=== PATIENT | male | born 1945 | race Caucasian/White ===

== ENCOUNTER 2017-07-04 14:22 | Emergency (ER) | payer MEDICARE, BC ==
[~2017-07-04] VITALS: Ht 182.9 cm; Wt 100.7 kg
--- NOTE | 2017-07-04 14:37 | NUR ---
PT IS IN ROOM #2A. DR ARIZA EVALUATED THE PT.
--- NOTE | 2017-07-04 14:44 | NUR ---
Left nostril bleeding has stopped. Nasal packing is dry & intact, no blood stains seen in the nasal packing. Patient discharged to home in stable conditon. Written and verbal after care instructions given to patient. Patient verbalizes understanding of instructions.
[2017-07-04] MEDS ORDERED: EPINEPHRINE-PF 1:1000 1 MG/ML AMPUL IV ONE (14:45)
[2017-07-04] MEDS ORDERED: EPINEPHRINE 1 MG/1 ML AMP ONE (14:53)
== END 2017-07-04 14:46 | disposition home or self-care (01) ==
LOC: ER 14:25
DX: R04.0 Epistaxis (principal); Z88.0 Allergy status to penicillin; Z88.2 Allergy status to sulfonamides; Z88.5 Allergy status to narcotic agent
CPT/HCPCS: 96374; 99284; A4663; J0171

== ENCOUNTER 2018-09-21 12:45 | Emergency (ER) | payer MEDICARE, BC ==
[~2018-09-21] VITALS: Ht 177.8 cm; Wt 104.8 kg
[2018-09-21] MEDS ORDERED: ALTEPLASE 100 MG VIAL IV ONE ×2 (12:46→13:45)
--- NOTE | 2018-09-21 12:57 | NUR ---
PT IS IN ROOM #1A. DR BLEVINS EVALUATED THE PT. CODE STROKE WAS CALLED BY DR BLEVINS. CODE STROKE PROTOCOL STARTED.
[2018-09-21 13:12] LABS: BASOPHILS # (AUTO) 0.1 K/uL (0.0-8.0); BASOPHILS % (AUTO) 0.7 % (0.0-2.0); EOSINOPHILS # (AUTO) 0.1 K/uL (0.0-0.7); EOSINOPHILS % (AUTO) 1.8 % (0.0-7.0); HEMOGLOBIN 14.6 g/dL (12.5-16.3); LYMPHOCYTES % (AUTO) 26.7 % (20.5-51.5); MEAN CORPUSCULAR HEMOGLOBIN 32.5 uug (23.8-33.4); MEAN CORPUSCULAR HGB CONC 34 g/dL (32.5-36.3); MEAN CORPUSCULAR VOLUME 95.9 fL (73.0-96.2); MONOCYTES % (AUTO) 13.6 % (0.0-11.0); NEUTROPHILS # (AUTO) 4.2 K/uL (1.8-8.9); NEUTROPHILS % (AUTO) 57.2 % (38.5-71.5); PLATELET COUNT (AUTO) 222 K/uL (152-348); RED BLOOD CELL COUNT(AUTO) 4.49 MIL/uL (4.06-5.63); WHITE BLOOD COUNT (AUTO) 7.4 K/uL (3.6-10.2)
[2018-09-21 13:13] LABS: CARBON DIOXIDE 26 mmol/L (21-32); CHLORIDE 101 mmol/L (98-107); CREATININE 1.1 mg/dL (0.6-1.3); GLUCOSE 113 mg/dL (74-106); POTASSIUM 4.3 mmol/L (3.5-5.1); UREA NITROGEN, BLOOD 15 mg/dL (7-18)
--- NOTE | 2018-09-21 13:13 | NUR ---
MEDICATION INFORMATION WILL BE FURNISHED BY LASHONDA.
[2018-09-21 13:19] LABS: ALANINE AMINOTRANSFERASE 35 U/L (16-63); ALKALINE PHOSPHATASE 139 U/L (50-136); ASPARTATE AMINOTRANSFERASE 34 U/L (15-37); BILIRUBIN,DIRECT 0.2 mg/dL (0.0-0.2); BILIRUBIN,TOTAL 0.5 mg/dL (0.2-1.0); CHOLESTEROL 164 mg/dL (<200); HDL CHOLESTEROL 35 mg/dL (40-60); TOTAL PROTEIN, SERUM 7.7 g/dL (6.4-8.2); TRIGLYCERIDES 166 MG/DL (30-150)
--- NOTE | 2018-09-21 13:43 | NUR ---
TPA INFUSION STARTED UNDER DIRECT OBSERVATION OF DR BLEVINS.
[2018-09-21] MEDS ORDERED: SWABABLE VALVE TRANSFER SET EA MC ONE (13:53)
--- NOTE | 2018-09-21 13:53 | NUR ---
CCT CALLED - SPOKE W/ CHERI. REQUESTED FOR FACESHEET TO BE FAXED [phone].
[2018-09-21] MEDS ORDERED: IOHEXOL 350 100 ML INFUS..BTL ONE (13:54)
[2018-09-21] MEDS ORDERED: IV NORMAL SALINE 250 ML IV ONE (13:54)
--- NOTE | 2018-09-21 14:01 | NUR ---
RECEIVED CALL FROM [facility]S CCT TEAM - DR. GARCIA WILL BE ADMITTING PHYSICIAN W/ DR. TRINIDAD, INTERVENTIONALIST. 20 MIN ETA.
--- NOTE | 2018-09-21 14:03 | NUR ---
ILIANA VALENTIN SPEAKING W/ DR. TRINIDAD, NEURO INTERVENTIONALIST, RE PT'S CASE.
--- NOTE | 2018-09-21 14:43 | NUR ---
TPA INFUSION FINISHED. PT TOLERATED TO PROCEDURE WITHOUT COMPLICATIONS, NO BLEEDING. DR BLEVINS RE-EVALUATED THE PT.
--- NOTE | 2018-09-21 14:58 | NUR ---
PT WAS TRANSFERD TO [facility] VIA [facility]. REPORT WAS GIVEN TO CCT RN .
== END 2018-09-21 15:19 | disposition short-term general hospital (02) ==
LOC: ER 12:45
DX: I63.9 Cerebral infarction, unspecified (principal); R47.01 Aphasia; I10 Essential (primary) hypertension; Z88.0 Allergy status to penicillin; Z88.2 Allergy status to sulfonamides; Z88.5 Allergy status to narcotic agent
CPT/HCPCS: 36415; 37195; 70450; 70496; 70498; 71045; 80048; 80061; 80076; 82962; 84484; 85025; 85730; 93005; 99291; J2997; Q9967; 70030-TC; A4663; J3490; J7040; J7050

== ENCOUNTER 2020-09-30 17:43 | Emergency (ER) | payer MEDICARE, BC ==
[~2020-09-30] VITALS: Ht 185.4 cm; Wt 81.6 kg
[2020-09-30 18:25] LABS: *BLOOD, URINE 3+ (NEGATIVE); *CLARITY,URINE CLOUDY (CLEAR); *COLOR,URINE AMBER (YELLOW); *KETONES,URINE TRACE (NEGATIVE); LEUKOCYTE ESTERASE ,URINE TRACE (NEGATIVE); NITRITE, URINE NEGATIVE (NEGATIVE); PH,URINE 5.5 (5.0-8.0); UGLUCOSE NEGATIVE (NEGATIVE)
[2020-09-30 18:28] LABS: *BILIRUBIN,URIN 1+ (NEGATIVE)
--- NOTE | 2020-09-30 18:34 | NUR ---
Pt had TURP procedure on Thursday, martínez was inserted at that time. Pt noticed a scant amount of brownish discharge at insertion point. No other complaints, no distress noted.
--- NOTE | 2020-09-30 19:19 | NUR ---
Dr. Agustin at bedside for MSE.
[2020-09-30] MEDS ORDERED: CIPR-262 PO (19:44)
--- NOTE | 2020-09-30 19:57 | NUR ---
Patient discharged to home in stable condition. Written and verbal after care instructions given. Patient verbalizes understanding of instructions. Stressed follow up or return to ER for worsening s/s. Patient out of ER with steady gait, no acute signs of distress, VSS, all belongings taken.
[2020-09-30 19:58] VITALS: BP 147/101
[2020-09-30 21:22] LABS: RBC,URINE TNTC /HPF (0-3)
[2020-09-30 21:23] LABS: BACTERIA,URINE RARE /HPF (NONE SEEN); SQUAMOUS EPITHELIAL CELL,UR FEW /HPF (NONE SEEN)
== END 2020-09-30 19:58 | disposition home or self-care (01) ==
LOC: ER 17:45
DX: N39.0 Urinary tract infection, site not specified (principal); Z98.890 Other specified postprocedural states; N40.0 Benign prostatic hyperplasia without lower urinary tract symptoms; Z88.5 Allergy status to narcotic agent; Z88.0 Allergy status to penicillin; Z88.2 Allergy status to sulfonamides
CPT/HCPCS: 87086; A4663